=== PATIENT | female | born 1950 | race African-American/Black ===

== ENCOUNTER 2017-12-23 21:00 | Emergency (ER) | payer OTHER ==
[~2017-12-23] VITALS: Ht 167.6 cm; Wt 65.3 kg
[~2017-12-23 21:00] MED LIST: MIRALAX510 GM PO
== END 2017-12-23 23:24 | disposition home or self-care (01) ==
LOC: ER 21:00 → CPU-OBS 21:08 → ER 21:08 → CPU-OBS 23:24 → ER 12-24 00:21
DX: R07.89 Other chest pain (principal); M94.0 Chondrocostal junction syndrome [Tietze]